=== PATIENT | male | born 1960 | race Caucasian/White ===

== ENCOUNTER 2017-11-30 10:27 | Inpatient (IN) | payer OTHER ==
[~2017-11-30] VITALS: Ht 177.8 cm; Wt 82.7 kg
[~2017-11-30 10:27] MED LIST: LORT5TAB PO; Z.0.NO CURRENT MEDS
[2017-11-30] MEDS ORDERED: ASPI81CH6 CHEW (10:40)
[2017-11-30] MEDS ORDERED: OMEGCAP PO (10:41)
[2017-11-30] MEDS ORDERED: TRAM50TA PO (10:41)
[2017-11-30 10:42] VITALS: BP 144/86; PULSE 64; RESP 20; TEMP 97.6; O2SAT 96
[2017-11-30 11:25] LABS: AUTOMATED NEUTROPHIL # 7.3 TH/MM3 (1.8-7.7); BASOPHIL # 0.1 TH/MM3 (0-0.2); BASOPHIL % 0.9 % (0.0-2.0); EOSINOPHIL # 0.2 TH/MM3 (0-0.4); EOSINOPHIL % 1.4 % (0.0-4.0); HEMATOCRIT 44.6 % (39.0-51.0); HEMOGLOBIN 15.2 GM/DL (13.0-17.0); LYMPH % 23.3 % (9.0-44.0); LYMPHOCYTE # 2.5 TH/MM3 (1.0-4.8); MEAN CELL VOLUME 90.6 FL (80.0-100.0); MEAN CORPUSCULAR HGB CONC 34.2 % (32.0-36.0); MEAN PLATELET VOLUME 9.1 FL (7.0-11.0); MONO % 6.7 % (0.0-8.0); MONOCYTE # 0.7 TH/MM3 (0-0.9); NEUT % 67.7 % (16.0-70.0); PLATELET COUNT 230 TH/MM3 (150-450); RED BLOOD COUNT 4.93 MIL/MM3 (4.50-5.90); RED CELL DISTRIBUTION WIDTH 13.8 % (11.6-17.2); WHITE BLOOD COUNT 10.7 TH/MM3 (4.0-11.0)
[2017-11-30 11:34] LABS: INTERNATIONAL NORMALIZED RATIO 1.1 RATIO; PROTHROMBIN TIME - PATIENT 10.7 SEC (9.8-11.6)
[2017-11-30 11:40] LABS: BICARBONATE 26.7 MEQ/L (21.0-32.0); CALCIUM 8.6 MG/DL (8.5-10.1); CREATININE 0.7 MG/DL (0.60-1.30)
[2017-11-30] MEDS: SODIUM CHLOR 0.9% 1000 ML INJ 1,000 ML IV SCH (12:00)
[2017-11-30] MEDS ORDERED: CLOPIDOGREL 300 MG TAB PO ONE (12:15)
[2017-11-30] MEDS ORDERED: MIDAZOLAM HCL 5 MG/5 ML VIAL ONE (13:00)
[2017-11-30] MEDS ORDERED: fentaNYL CITRATE 250 MCG/5 ML AMP ONE (13:01)
[2017-11-30] MEDS ORDERED: ceFAZolin 2 GM PREMIX 50 ML ONE (13:38)
[2017-11-30] MEDS ORDERED: VERAPAMIL HCL 5 MG/2 ML VIAL ONE (13:50)
[2017-11-30] MEDS ORDERED: ONDANSETRON HCL 4 MG/2 ML VIAL IVP PRN (14:00)
[2017-11-30] MEDS ORDERED: ACETAMINOPHEN 325 MG TAB PO PRN (14:00)
[2017-11-30] MEDS ORDERED: MAGNESIUM HYDROXIDE SUSP 30 ML CUP PO PRN (14:00)
[2017-11-30] MEDS ORDERED: NALOXONE HCL 0.4 MG/ML AMP IV PUSH PRN (14:00)
[2017-11-30] MEDS ORDERED: SODIUM CHLORIDE 0.9% FLUSH 10 ML FLUSH IV FLUSH PRN (14:00)
[2017-11-30] MEDS ORDERED: HEPARIN SODIUM - IV 10,000 UNITS/10 ML VIAL ONE (14:21)
--- NOTE | 2017-11-30 14:34 | HHI.HP ---
HPI Service [facility] Hospitalists Primary Care Physician Dr. Iris Mancini Admission Diagnosis Carotid artery stenosis Chief Complaint: Carotid artery stenosis Travel History International Travel<30 Days: No Contact w/Intl Traveler <30 Da: No Traveled to Known Affected Are: No History of Present Illness Mr. 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 Pt was seen by Dr. Esteban as an outpt for elective right carotid endarterectomy. Pt was admitted to Interventional Radiology this morning for a left carotid artery stent placement. [facility] Hospitalist team was requested to admit the pt overnight for continued observation. Pt is seen in [facility] and without any specific complaints. His vital signs are stable. Denies any chest pain, SOB, palpitations, dizziness, weakness , abd pain, N/V. 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 Chronic low back pain Tobacco use Past Surgical History Back surgery Reported Medications [place]-3 Fish Oil/Vitamin 1,000 Mg Cap 1 Cap PO DAILY Tramadol 50 Mg PO Q6H PRN Aspirin Low Dose 81 Mg CHEW DAILY Allergies: Coded Allergies: No Known Allergies (Verified Allergy, Unknown, 11/30/17) Family History Mother with hx of vocal cord cancer Social History (+)Tobacco use, 50 year pack history Denies any regular alcohol use or illicit drug use Physical Exam Vital Signs Vital Signs Date Time Temp Pulse Resp B/P (MAP) Pulse Ox O2 Delivery O2 Flow Rate FiO2 11/30/17 10:58 96 Room Air 11/30/17 10:42 97.6 64 20 144/86 (105) 96 Physical Exam GENERAL: This is a well-nourished, well-developed patient, in no apparent distress. HEENT: Atraumatic. Normocephalic. No temporal or scalp tenderness. No scleral icterus. Airway patent. NECK: Trachea midline, supple, nontender. CARDIO: Regular. RESP: CTA bilaterally. No wheezes, rales, or rhonchi. ABD: +BS, soft, non-tender, nondistended. EXT: Extremities without clubbing, cyanosis, or edema. NEURO: Awake and alert. Motor and sensory grossly within normal limits. Normal speech. Laboratory Laboratory Tests Test 11/30/17 11:08 White Blood Count 10.7 Red Blood Count 4.93 Hemoglobin 15.2 Hematocrit 44.6 Mean Corpuscular Volume 90.6 Mean Corpuscular Hemoglobin 31.0 Mean Corpuscular Hemoglobin Concent 34.2 Red Cell Distribution Width 13.8 Platelet Count 230 Mean Platelet Volume 9.1 Neutrophils (%) (Auto) 67.7 Lymphocytes (%) (Auto) 23.3 Monocytes (%) (Auto) 6.7 Eosinophils (%) (Auto) 1.4 Basophils (%) (Auto) 0.9 Neutrophils # (Auto) 7.3 Lymphocytes # (Auto) 2.5 Monocytes # (Auto) 0.7 Eosinophils # (Auto) 0.2 Basophils # (Auto) 0.1 CBC Comment DIFF FINAL Differential Comment Prothrombin Time 10.7 Prothromb Time International Ratio 1.1 Activated Partial Thromboplast Time 27.8 Blood Urea Nitrogen 17 Creatinine 0.70 Random Glucose 83 Calcium Level 8.6 Sodium Level 140 Potassium Level 4.0 Chloride Level 107 Carbon Dioxide Level 26.7 Anion Gap 6 Estimat Glomerular Filtration Rate 115 Result Diagram: 11/30/17 1108 11/30/17 1108 Caprini VTE Risk Assessment Caprini VTE Risk Assessment: Mod/High Risk (score >= 2) Caprini Risk Assessment Model Point Value = 1 Point Value = 2 Point Value = 3 Point Value = 5 Age 41-60 Minor surgery BMI > 25 kg/m2 Swollen legs Varicose veins or History of unexplained or recurrent spontaneous Oral contraceptives or hormone replacement Sepsis (< 1 month) Serious lung disease, including pneumonia (< 1 month) Abnormal pulmonary function Acute myocardial infarction Congestive heart failure (< 1 month) History of inflammatory bowel disease Medical patient at bed rest Age 61-74 Arthroscopic surgery Major open surgery (> 45 min) Laparoscopic surgery (> 45 min) Malignancy Confined to bed (> 72 hours) Immobilizing plaster cast Central venous access Age >= 75 History of VTE Family history of VTE Factor V Leiden Prothrombin [id number] Lupus anticoagulant Anticardiolipin antibodies Elevated serum homocysteine Heparin-induced thrombocytopenia Other congenital or acquired thrombophilia Stroke (< 1 month) Elective arthroplasty Hip, pelvis, or leg fracture Acute spinal cord injury (< 1 month) Prophylaxis Regimen Total Risk Factor Score Risk Level Prophylaxis Regimen 0-1 Low Early ambulation 2 Moderate Order ONE of the following: *Sequential Compression Device (SCD) *Heparin 5000 units SQ BID 3-4 Higher Order ONE of the following medications: *Heparin 5000 units SQ TID *Enoxaparin/Lovenox 40 mg SQ daily (WT < 150 kg, CrCl > 30 mL/min) *Enoxaparin/Lovenox 30 mg SQ daily (WT < 150 kg, CrCl > 10-29 mL/min) *Enoxaparin/Lovenox 30 mg SQ BID (WT < 150 kg, CrCl > 30 mL/min) AND/OR *Sequential Compression Device (SCD) 5 or more Highest Order ONE of the following medications: *Heparin 5000 units SQ TID (Preferred with Epidurals) *Enoxaparin/Lovenox 40 mg SQ daily (WT < 150 kg, CrCl > 30 mL/min) *Enoxaparin/Lovenox 30 mg SQ daily (WT < 150 kg, CrCl > 10-29 mL/min) *Enoxaparin/Lovenox 30 mg SQ BID (WT < 150 kg, CrCl > 30 mL/min) AND *Sequential Compression Device (SCD) Assessment and Plan Problem List: (1) Left carotid artery stenosis ICD Codes: I65.22 - Occlusion and stenosis of left carotid artery Status: Chronic Plan: - 57 y/o male with 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 - Pt was previously seen by Dr. Esteban as an outpt in 07/2017 for elective right carotid endarterectomy. - Pt was admitted to Interventional Radiology this morning for a left carotid artery stent placement. - [facility] Hospitalist team was requested to admit the pt for continued observation. 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 Assessment and plan formulated with Sandie Suarez PA-C. I agree with the above. Observe overnight. Anticipate d/c in AM if pt remains stable. Yenni Edwards Nov 30, 2017 14:34 Nathan Read DO Dec 01, 2017 11:54
[2017-11-30] MEDS ORDERED: ATROPINE SULFATE 1 MG/10 ML SYRINGE ONE (14:45)
--- NOTE | 2017-11-30 15:21 | PD.RAD ---
Post Procedure Progress Note Pre Procedure Diagnosis: (1) Left carotid artery stenosis Post Procedure Diagnosis: (1) Left carotid artery stenosis Procedure Date: Nov 30, 2017 Supervising Radiologist: Richie Davis Proceduralist/Assist: Izabel Shipman, RT(R)(), Nataliya Mir RT(R) Anesthesia: Conscious Sedation Plan of Activity Patient to Unit: Nursing Unit Patient Condition: Good See PACS Report for procedural detail/treatment Vascular-Arterial Procedure Procedure 1 Procedure Site: Left Carotid Procedure(s): Stent Placement Access Access Site(s): Right Femoral Artery Closure Site(s): Right vascular closure device Richie Davis MD Nov 30, 2017 15:21
[2017-11-30 16:00] VITALS: BP 139/65; PULSE 49; RESP 14; TEMP 97.8; O2SAT 96
[2017-11-30] MEDS ORDERED: THROMBIN (TOPICAL) 5,000 UNIT VIAL ONE (16:52)
--- NOTE | 2017-11-30 16:57 | RADRPT ---
EXAM DATE/TIME: 11/30/2017 13:14 [facility] COMPARISON: No previous studies available for comparison. INDICATIONS : Patient presents with loss of vision and stenosis in carotid artery. MEDICAL HISTORY : Shingles History of throat cancer SURGICAL HISTORY : Laminectomy 3-4 Right digit amputation ENCOUNTER: Initial ACUITY: 4 - 6 months PAIN SCORE: 0/10 FLUORO TIME: 11.1 minutes IMAGE SERIES: 7 ACCESS SITE: Right Femoral artery SEDATION TIME: 60 minutes CONTRAST: 65 cc Visipaque (iodixanol) MEDICATION(S): 1.) 3.5 mg midazolam (Versed) IV 2.) 175 mcg fentanyl (Sublimaze) IV 3.) 2 g cefazolin (Ancef) IV 4.) 5000 units Heparin IV DEVICE(S): 1.) Left internal carotid artery Protege RX 10-7 x 30 stent PROCEDURE : 1. Ultrasound guided puncture of the right common femoral artery. 2. Angiography of the right common femoral artery prior to closure device. 3. Conscious sedation with continuous EKG and oximetry monitoring. 4. Percutaneous closure of the femoral artery. 5. Angiography of the left common carotid artery 6. angioplasty and stenting of the left internal carotid artery The risks, benefits and alternatives to the procedure were explained and verbal and written consent w as obtained. The site was prepped in sterile fashion. Full sterile technique was used, including ca p, mask, sterile gloves and gown and a large sterile sheet. Hand hygiene and 2% chlorhexidine and/or betadine/alcohol prep was utilized per protocol for cutaneous antisepsis. Sterile gel and sterile p robe cover were utilized for ultrasound guidance. The skin and subcutaneous tissues were infiltrated with local anesthetic solution. With ultrasound and fluoroscopic guidance the right common femoral artery was punctured and a vascula r sheath was placed. Angiography of the common femoral artery was performed for evaluation prior to p ercutaneous closure device placement. The patient has a 1 aortic arch. Examination of the carotid artery demonstrates the lesion to be in t he internal carotid artery. Visible thrombus is not present. Ulceration is not present. There is no c alcification present. The lesion length is 4 millimeters. The minimal luminal diameter is one millime ters. The diameter of the distal internal carotid artery for reference is 6 millimeters. The percent stenosis by NASCET criteria is 85 %. Angiography of the common carotid artery was performed with placement of a KACY 2 catheter in the vesse l. Oblique views performed over the bifurcation and AP and demonstrating no intracranial stenosis. Fo llowing this a sheath was placed in the common carotid artery and a 6 mm device was placed in the int ernal carotid artery. Interval was performed with a 5 mm balloon and the prescribed stent was placed. Follow up angiography demonstrates no residual stenosis and intact intracranial circulation. The puncture site was closed with a Perclose suture mediated closure device. The patient tolerated t he procedure well and there were no complications. Conscious sedation was performed with the prescribed dosages and duration as above in the presence of an independent trained radiology nurse to assist in the monitoring of the patient. EKG and oximetry remained stable throughout the procedure. CONCLUSION: 1. Uncomplicated carotid artery stent placement as above. 2. Ultrasound examination at 6, 12, 18 and 24 months following procedure should be performed to evalu ate stent patency. Richie Davis MD on November 30, 2017 at 16:52 Board Certified Radiologist. This report was verified electronically.
[2017-11-30 18:00] VITALS: PULSE 55
--- NOTE | 2017-11-30 18:10 | RADRPT ---
EXAM DATE/TIME: 11/30/2017 17:30 [facility] COMPARISON: No previous studies available for comparison. INDICATIONS : Cough. MEDICAL HISTORY : Carcinoma, esophageal. shingles SURGICAL HISTORY : laminectomy ENCOUNTER: Initial ACUITY: 1 day PAIN SCORE: 0/10 LOCATION: chest FINDINGS: A single view of the chest demonstrates the lungs to be symmetrically aerated without evidence of mas s, infiltrate or effusion. The cardiomediastinal contours are unremarkable. Osseous structures are intact. CONCLUSION: 1. No acute cardiopulmonary disease. Richie Davis MD on November 30, 2017 at 18:09 Board Certified Radiologist. This report was verified electronically.
[2017-11-30] MEDS: oxyCODONE/ACETAMINOPHEN 5 MG/325 MG TAB PO PRN (18:46)
[2017-11-30 20:00] VITALS: BP 124/62; PULSE 52; PULSE 53; RESP 14; TEMP 98.1; O2SAT 99
[2017-11-30] MEDS ORDERED: SODIUM CHLORIDE 0.9% FLUSH 10 ML FLUSH IV FLUSH SCH (21:00)
[2017-11-30 22:00] VITALS: PULSE 54
[2017-12-01] VITALS (7 sets, daily range): BP systolic 130–141; BP diastolic 56–72; PULSE 52–68; RESP 11–18; TEMP 97.9–98.8; O2SAT 95–99
[2017-12-01] MEDS: oxyCODONE/ACETAMINOPHEN 5 MG/325 MG TAB PO PRN (04:35)
[2017-12-01 05:07] LABS: AUTOMATED NEUTROPHIL # 6.8 TH/MM3 (1.8-7.7); BASOPHIL # 0.1 TH/MM3 (0-0.2); BASOPHIL % 0.9 % (0.0-2.0); EOSINOPHIL # 0.2 TH/MM3 (0-0.4); EOSINOPHIL % 2.1 % (0.0-4.0); HEMATOCRIT 42.7 % (39.0-51.0); HEMOGLOBIN 14.7 GM/DL (13.0-17.0); LYMPH % 18.3 % (9.0-44.0); LYMPHOCYTE # 1.8 TH/MM3 (1.0-4.8); MEAN CELL VOLUME 90.4 FL (80.0-100.0); MEAN CORPUSCULAR HEMOGLOBIN 31.2 PG (27.0-34.0); MEAN CORPUSCULAR HGB CONC 34.5 % (32.0-36.0); MEAN PLATELET VOLUME 9.3 FL (7.0-11.0); MONO % 8.1 % (0.0-8.0); MONOCYTE # 0.8 TH/MM3 (0-0.9); NEUT % 70.6 % (16.0-70.0); PLATELET COUNT 204 TH/MM3 (150-450); RED BLOOD COUNT 4.73 MIL/MM3 (4.50-5.90); RED CELL DISTRIBUTION WIDTH 13.6 % (11.6-17.2); WHITE BLOOD COUNT 9.6 TH/MM3 (4.0-11.0)
[2017-12-01 05:12] LABS: BICARBONATE 26.9 MEQ/L (21.0-32.0); CALCIUM 8.3 MG/DL (8.5-10.1); CREATININE 0.69 MG/DL (0.60-1.30)
[2017-12-01] MEDS: SODIUM CHLOR 0.9% 1000 ML INJ 1,000 ML IV SCH (08:00)
[2017-12-01] MEDS ORDERED: PLAV75TA29 PO (08:39)
--- NOTE | 2017-12-01 08:44 | HHI.DS ---
Discharge Summary Admission Date Nov 30, 2017 at 15:25 Discharge Date: Dec 01, 2017 Admitting Diagnosis Carotid artery stenosis (1) Left carotid artery stenosis Diagnosis: Principal ICD Codes: I65.22 - Occlusion and stenosis of left carotid artery Status: Chronic (2) Tobacco use Diagnosis: Secondary ICD Codes: Z72.0 - Tobacco use Status: Chronic (3) SCC (squamous cell carcinoma) of glottis Diagnosis: Secondary ICD Codes: C32.0 - Malignant neoplasm of glottis Consultants [facility] Procedures 11/30/17 Carotid artery stent placement by SIL Fernandez Brief History Mr. 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 Pt was seen by Dr. Esteban as an outpt for elective right carotid endarterectomy. Pt was admitted to Interventional Radiology this morning for a left carotid artery stent placement. [facility] Hospitalist team was requested to admit the pt overnight for continued observation. Pt is seen in [facility] and without any specific complaints. His vital signs are stable. Denies any chest pain, SOB, palpitations, dizziness, weakness , abd pain, N/V. CBC/BMP: 12/01/17 0335 12/01/17 0335 Significant Findings Laboratory Tests Test 11/30/17 11:08 12/01/17 03:35 Neutrophils (%) (Auto) 70.6 % (16.0-70.0) Monocytes (%) (Auto) 8.1 % (0.0-8.0) Calcium Level 8.3 MG/DL (8.5-10.1) Chloride Level 108 MEQ/L (98-107) Imaging Last Impressions Chest X-Ray 11/30/17 1356 Signed Impressions: Service Date/Time: Thursday, November 30, 2017 17:30 - CONCLUSION: 1. No acute cardiopulmonary disease. Richie Davis MD Vascular Stent Procedure 11/30/17 0000 Signed Impressions: Service Date/Time: Thursday, November 30, 2017 13:14 - CONCLUSION: 1. Uncomplicated carotid artery stent placement as above. 2. Ultrasound examination at 6, 12, 18 and 24 months following procedure should be performed to evaluate stent patency. 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 - Pt was previously seen by Dr. Esteban as an outpt in 07/2017 for elective right carotid endarterectomy. Per interventional radiology's recommendations ultrasound examination of 03/15/18 and 24 months following procedure should be performed to evaluate stent patency. Patient follow-up with PCP one week after discharge and thereafter - Pt was admitted to Interventional Radiology 11/30/17 for a left carotid artery stent placement. - [facility] Hospitalist team was requested to admit the pt for continued observation. 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 Mancini Vascular Surgery - [address] Hakeem Esteban New Medications: Clopidogrel (Plavix) 75 Mg Tab 75 MG PO DAILY for Blood Clot Prevention, #30 TAB 0 Refills Continued Medications: Aspirin (Aspirin Low Dose) 81 Mg Chew 81 MG CHEW DAILY, TAB 0 Refills Fish Oil-Cholecalciferol ([place]-3 Fish Oil/Vitamin) 1,000-1,000 Mg Cap 1 CAP PO DAILY for Nutritional Supplement, CAP 0 Refills Tramadol (Tramadol) 50 Mg Tab 50 MG PO Q6H PRN for PAIN, TAB 0 Refills Additional Information Patient examined. Assessment and plan formulated with Sandie Suarez PA-C. I agree with the above. Pt doing well. Pt tolerating PO intake. Pt denies any difficulties swallowing. Pt denies SOB. Pt eager for discharge to home. Sandie Suarez Dec 01, 2017 08:44 Nathan Read DO Dec 01, 2017 12:09
[2017-12-01] MEDS ORDERED: CLOPIDOGREL 75 MG TAB PO SCH (09:00)
[2017-12-01] MEDS ORDERED: ASPIRIN 81 MG CHEW TAB CHEW SCH (09:00)
[2017-12-01] MEDS ORDERED: ASPIRIN 81 MG CHEW TAB PO SCH (09:00)
--- NOTE | 2017-12-01 12:09 | HHI.DCPOC ---
Discharge Care Plan Diagnosis: (1) SCC (squamous cell carcinoma) of glottis (2) Left carotid artery stenosis (3) Tobacco use Goals to Promote Your Health * To prevent worsening of your condition and complications * To maintain your health at the optimal level Directions to Meet Your Goals Take your medications as prescribed Follow your dietary instruction Follow activity as directed Keep your appointments as scheduled Take your immunizations and boosters as scheduled If your symptoms worsen call your PCP, if no PCP go to Urgent Care Center or Emergency Room Smoking is Dangerous to Your Health. Avoid second hand smoke Call the 24-hour hour crisis hotline for domestic abuse at Nathan Read DO Dec 01, 2017 12:09
--- NOTE | 2017-12-01 12:22 | EKG ---
Date Performed: 11/30/2017 Time Performed: 16:24:17 PTAGE: 57 years EKG: SINUS BRADYCARDIA BORDERLINE ECG PREVIOUS TRACING : 02/06/2012 20.19 Since the prior tracing, there has been no significant farmer DOCTOR: Richie Vargas Interpretating Date/Time 12/01/2017 12:21:06
== END 2017-12-01 12:10 | disposition home or self-care (01) | DRG 36 ==
LOC: HROP 10:27 → HRIP 10:32 → HROP 15:23 → N03A 15:25
PROVIDERS: ADMIT Hospitalist; ATTEND Hospitalist
PROC: 037L3DZ Dilation of Left Internal Carotid Artery with Intraluminal Device, Percutaneous Approach (ICD-10-PCS; principal; 2017-11-30)
PROC: B3141ZZ Fluoroscopy of Left Common Carotid Artery using Low Osmolar Contrast (ICD-10-PCS; 2017-11-30)
PROC: B41F1ZZ Fluoroscopy of Right Lower Extremity Arteries using Low Osmolar Contrast (ICD-10-PCS; 2017-11-30)
DX: I65.23 Occlusion and stenosis of bilateral carotid arteries (principal); F17.210 Nicotine dependence, cigarettes, uncomplicated; G89.29 Other chronic pain; M54.5 Low back pain; H53.8 Other visual disturbances; Z85.21 Personal history of malignant neoplasm of larynx; Z92.3 Personal history of irradiation
CPT/HCPCS: 37215; 71045; 76937; 80048; 85025; 85610; 85730; 93005; 99152; 99153; C1760; C1769; C1876; C1884; C1887; C1894; J0461; J0690; J1644; J2250; J3010; J7030

== ENCOUNTER 2017-12-09 10:47 | Day surgery (SDC) | payer OTHER ==
[~2017-12-09 10:47] MED LIST changes: +ASPI81CH6 CHEW; -LORT5TAB PO; +OMEGCAP PO; +PLAV75TA29 PO; +TRAM50TA PO; -Z.0.NO CURRENT MEDS
[2017-12-09 11:10] VITALS: BP 151/70; PULSE 63; RESP 20; TEMP 97.9; O2SAT 97
--- NOTE | 2017-12-09 14:03 | RADRPT ---
EXAM DATE/TIME: 12/09/2017 00:00 [facility] COMPARISON : No previous studies available for comparison. INDICATIONS : F/U CAROTID STENT OBJECTIVE: Temperature: 97.9 Heart Rate: 63 Blood Pressure: 151/70 Respiratory: 20 Oximetry: 97 PNEUMONIA VACCINE: HISTORY OF PRESENT ILLNESS: 57-year-old male with history of prior radiation therapy for laryngeal CA and symptomatic left caroti d artery stenosis postop day #9 status post carotid artery stent placement. He has no complaints and reports resolution of prior vision symptoms. He is anxious to return to work today. ASSESSMENT: 57-year-old male status post uncomplicated left carotid artery stent placement. He is now asymptomati c and has no significant neurological deficits. PLAN: Followup ultrasound examination in 6 months. TIME SPENT: 15 minutes Hunter Wilson MD on December 09, 2017 at 13:57 Board Certified Radiologist. This report was verified electronically.
== END 2017-12-09 11:40 | disposition home or self-care (01) ==
LOC: HROP 10:47 → HRIP 10:51 → HROP 11:40
PROVIDERS: ATTEND Radiology Body Imaging
DX: Z48.89 Encounter for other specified surgical aftercare (principal)

== ENCOUNTER 2018-02-17 09:19 | Emergency (ER) | END 2018-02-17 14:18 | disposition home or self-care (01) | DX: S01.81XA Laceration without foreign body of other part of head, initial encounter (principal); S51.012A Laceration without foreign body of left elbow, initial encounter; S51.011A Laceration without foreign body of right elbow, initial encounter; R07.89 Other chest pain; F17.200 Nicotine dependence, unspecified, uncomplicated; W11.XXXA Fall on and from ladder, initial encounter; Z23 Encounter for immunization; Z79.02 Long term (current) use of antithrombotics/antiplatelets; Z79.82 Long term (current) use of aspirin; Z79.899 Other long term (current) drug therapy ==

== ENCOUNTER 2018-02-18 08:59 | Emergency (ER) | payer SELFPAY ==
[~2018-02-18 08:59] MED LIST changes: +IBUP-232 PO
[2018-02-18 09:02] VITALS: BP 173/77; PULSE 70; RESP 16; TEMP 97.8; O2SAT 97
[2018-02-18] MEDS ORDERED: PERC5TAB12 PO (09:36)
[2018-02-18] MEDS ORDERED: ROBA500T PO (09:36)
--- NOTE | 2018-02-18 09:42 | PD ---
HPI Chief Complaint: Pain: Acute or Chronic Time Seen by Provider: 09:15 Travel History International Travel<30 days: No Contact w/Intl Traveler<30days: No Traveled to known affect area: No History of Present Illness HPI 57-year-old male presents to the emergency department requesting something more than ibuprofen or tramadol for his pain that started yesterday after he fell off of a roof. He was a trauma alert here at [facility] and he told the doctor that he saw yesterday that he was on tramadol and he did not think he needed anything more for pain. He was prescribed ibuprofen 600 mg and he says it is just not "cutting it." He reports pain all over. Denies change in symptoms from yesterday. Reports chest wall pain. Denies chest pain, shortness of breath. Reports arm and leg pain. reports facial pain. Denies fever or vomiting. Pain is worse with movement and deep breathing. Has tried taking his tramadol with minimal relief of pain. Rates pain 10/10. Describes as aching all over. Pain is generalized. Worse with movement per pain was worse at night while trying to sleep also. No known relieving factors. Primary care provider is [facility]. Denies significant past medical history. Denies allergies. Has no other medical complaints. No other modifying factors or associated signs and symptoms. PFSH Past Medical History Arthritis: No Autoimmune Disease: No Blood Disorders: No Cancer: Yes (Vocal) Cardiovascular Problems: No Chemotherapy: No Cerebrovascular Accident: No Diabetes: No Diminished Hearing: No Endocrine: No Gastrointestinal Disorders: No Genitourinary: No Headaches: No Hepatitis: No Hiatal Hernia: No Hypertension: No Immune Disorder: No Implanted Vascular Access Dvce: No Medical other: Yes (SPINAL MENINGITIS AT AGE 5) Musculoskeletal: Yes (low back pain) Neurologic: Yes (low back pain) Psychiatric: No Reproductive: No Respiratory: No Migraines: No Radiation Therapy: Yes Seizures: No Shingles: Yes (WITHIN THE LAST 90 DAYS) Thyroid Disease: No Past Surgical History AICD: No Arteriovenous Shunt: No Insulin Pump: No Joint Replacement: No Neurologic Surgery: Yes (Back) 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) Pacemaker: No Other Surgery: Yes (Back, Vocal cords, Stent, Amputaion of fingers) Social History Alcohol Use: No Tobacco Use: Yes (1ppd) Substance Use: No Allergies-Medications (Allergen,Severity, Reaction): Coded Allergies: No Known Allergies (Verified Allergy, Unknown, 11/30/17) Reported Meds & Prescriptions Reported Meds & Active Scripts Active Robaxin (Methocarbamol) 500 Mg Tab 500 Mg PO QID PRN Percocet (Oxycodone-Acetaminophen) 5-325 mg Tab 1 Tab PO Q4-6H PRN Ibuprofen 600 Mg Tab 600 Mg PO Q6H PRN Plavix (Clopidogrel Bisulfate) 75 Mg Tab 75 Mg PO DAILY Reported [place]-3 Fish Oil/Vitamin (Fish Oil-Cholecalciferol) 1,000-1,000 Mg Cap 1 Cap PO DAILY Tramadol (Tramadol HCl) 50 Mg Tab 50 Mg PO Q6H PRN Aspirin Low Dose (Aspirin) 81 Mg Chew 81 Mg CHEW DAILY Review of Systems Except as stated in HPI: all other systems reviewed are Neg Physical Exam Narrative GENERAL: Well-nourished, well-developed male patient, in no acute distress SKIN: Warm and dry. HEAD: Atraumatic. Normocephalic. Right eye with surrounding ecchymosis. EYES: Pupils equal and round. No scleral icterus. No injection or drainage. ENT: Mucosa pink and moist. Airway patent. NECK: Trachea midline. CHEST: Reproducible tenderness to the anterior chest wall; without deformity or crepitance. No retractions or use of accessory muscles. CARDIOVASCULAR: Regular rate and rhythm. No murmur appreciated. RESPIRATORY: No accessory muscle use. Breath sounds clear and equal bilaterally. No retractions or tachypnea. GASTROINTESTINAL: Flat. MUSCULOSKELETAL: No obvious deformities. No clubbing. No cyanosis. No edema. NEUROLOGICAL: Awake and alert. Oriented 3. No obvious cranial nerve deficits. Motor grossly within normal limits. Normal speech. PSYCHIATRIC: Appropriate mood and affect; insight and judgment normal. Data Data Last Documented VS Vital Signs Date Time Temp Pulse Resp B/P (MAP) Pulse Ox O2 Delivery O2 Flow Rate FiO2 02/18/18 09:02 97.8 70 16 173/77 (109) 97 Orders Orders Ed Discharge Order (02/18/18 09:42) MDM Medical Decision Making Medical Screen Exam Complete: Yes Emergency Medical Condition: Yes Medical Record Reviewed: Yes Differential Diagnosis Pain management, generalized pain, fall from roof sequela encounter Narrative Course This is a 57-year-old male who was seen yesterday as a trauma alert after falling off of the roof. He is requesting something more for pain. He takes tramadol 50 mg 2-3 times daily for chronic back pain, but it is not helping with his current pain. He has no change in symptoms. I reviewed his medical record and he had CT cervical spine, chest x-ray, head CT, bilateral elbows x- ray, left hand x-ray, pelvis x-ray were all unremarkable. I discussed the patient with my attending physician and she agrees with my plan of care. Instructed patient to stop taking tramadol while he takes Percocet and he verbalized understanding and agreement. Percocet, Robaxin prescribed for home. Instructed patient to follow up with primary care provider. Patient verbalizes understanding and agreement with treatment plan. Patient is medically cleared and stable for discharge. Discussed reasons to return to the emergency department. Patient agrees with treatment plan. The patients vital signs are stable and the patient is stable for outpatient follow-up and treatment. Patient discharged home, stable and in no acute distress. Diagnosis Primary Impression: Generalized pain Additional Impression: Fall from roof Qualified Codes: W13.2XXD - Fall from, out of or through roof, subsequent encounter Referrals: Primary Care Physician Patient Instructions: Chest Wall Pain (ED), General Instructions Additional Instructions: Stop taking tramadol while you take Percocet Ibuprofen as directed and as needed for pain Robaxin as prescribed and as needed for muscle spasms Heating pad and/or ice to affected area to reduce pain Avoid aggravating activities; increase activity as tolerated Deep breathing exercises every 1-2 hours while awake Follow-up with primary care provider Return to emergency department immediately with worsening of symptoms Med/Other Pt SpecificInfo: Prescription(s) given Scripts Methocarbamol (Robaxin) 500 Mg Tab 500 MG PO QID Y for MUSCLE SPASM, #30 TAB 0 Refills Prov: Lelia PhillipsP 02/18/18 Oxycodone-Acetaminophen (Percocet) 5-325 mg Tab 1 TAB PO Q4-6H Y for PAIN, #15 TAB 0 Refills Prov: Lelia PhillipsP 02/18/18 Disposition: DISCHARGE HOME Condition: Stable Lelia Phillips February 18, 2018 09:42
== END 2018-02-18 09:53 | disposition home or self-care (01) ==
LOC: NEPD 08:59
DX: R07.89 Other chest pain (principal)
CPT/HCPCS: 99283